=== PATIENT | female | born 1995 | race Caucasian/White ===

== ENCOUNTER 2021-04-22 10:12 | Emergency (ER) | payer OTHER, SELFPAY ==
--- NOTE | ~2021-04-22 | US_ITS ---
EXAMINATION: US VENOUS ULTRASOUND WITH DOPPLER LOWER EXTREMITY, RIGHT CLINICAL INFORMATION: Right lower extremity pain and swelling. COMPARISON: None TECHNIQUE: Ultrasound of the deep veins is performed from the hip to the calf with compression sonography and color and pulse Doppler assessment. Spectral analysis with color-flow imaging is performed. FINDINGS: There is normal venous compression and respiratory variation and augmented flow. The visualized common femoral vein, superficial femoral vein, profunda femoral vein, popliteal vein, and the trifurcation region shows no evidence of deep venous thrombosis. There is no significant popliteal fossa cyst. If the patient's symptoms persist, followup ultrasound in 5 days 7 days might be of value to exclude proximal propagation from a non-visualized calf vein. US/US venous duplex LE RT IMPRESSION: No DVT demonstrated in the right lower extremity.
[2021-04-22 11:06] VITALS: BP 126/87; PULSE 82; RESP 18; TEMP 36.6; O2SAT 100; BMI 40.6
--- NOTE | 2021-04-22 11:06 | ED_ITS ---
HPI - Extremity Injury (Lower) General Chief Complaint: Extremity Injury, Lower Stated Complaint: blood clot in leg ? Time Seen by Provider: 04/22/21 11:06 Source: patient Mode of arrival: ambulatory Limitations: no limitations History of Present Illness HPI Narrative: Patient is 30 weeks and has a prior history of blood clots during . Patient is only on ASA currently. Sent in by her OB for DVT rule out. No chest pain no shortness, no redness, Right let slightly more swollen than the left. Onset (ago): day(s) (3) Exacerbating factors: nothing Associated symptoms: swelling and tingling Related Data Allergies Allergy/AdvReac Type Severity Reaction Status Date / Time aloe [ALOE] Allergy Unknown RASH Unverified 05/23/20 16:16 Aloe Allergy Unknown Uncoded 10/18/19 00:00 DUST Allergy Unknown SNEEZING Uncoded 05/23/20 16:16 Dust Allergy Unknown Uncoded 10/18/19 00:00 Review of Systems Constitutional: Constitutional: Reports no additional constitutional complaints Eyes: Eyes: Reports no additional eye complaints ENT: Denies dizziness Cardiovascular: Cardiovascular: Reports no additional cardiovascular complaints Respiratory: Respiratory: Reports as per HPI Gastrointestinal: Gastrointestinal: Reports no additional gastrointestinal complaints Genitourinary: Genitourinary: Reports no additional female genitourinary complaints Musculoskeletal: Musculoskeletal: Reports no additional musculoskeletal complaints Integumentary/Breasts: Skin/Breast: Denies rash Neurologic: Reports system reviewed and no additional complaints, except as documented, Denies dizziness and Denies Sensory deficit (Neuro) Psychiatric: Psychiatric: Denies anxiety [facility] Past Medical History Medical History DVT (deep vein thrombosis) in Social History Social History Advance Directives: No Advance Directives Information Provided: No Patient : Yes Physical Exam Vital Signs: Vital Signs: Last Vital Signs Temp 98.5 F 04/22/21 11:31 Pulse 79 04/22/21 11:31 Resp 15 04/22/21 11:31 BP 105/60 04/22/21 11:31 Pulse Ox 99 04/22/21 11:31 Body Mass Index 40.6 Const: Other: young female General: healthy appearing Orientati on/consciousness: oriented to person and patient oriented x3 Limitations: no limitations HENMT: Head: Yes normal to inspection Ears: external ears normal General nose exam: Normal external nose present Mouth: Normal oral and palatal mucosa present and oropharynx normal Throat: Yes posterior oropharynx normal Eyes: General: appearance normal, both eyes and all related structures Neck: Other: supple Neck: Yes normal visual inspection Chest: Chest palpation & inspection: normal inspection of the chest Resp: Auscultation: clear to auscultation bilaterally Cardio: Jugular venous distension: no JVD Rate: regular rate Rhythm: regular rhythm Heart sounds: S1 normal heart sound present and S2 normal heart sound present GI: Other: gravid nontender Palpation (GI): Soft to palpation, nontender and No hepatosplenomegaly present Auscultation: normal bowel sounds : General: Yes no CVA tenderness Back/Spine/Pelvis: Back: no CVA tenderness Skin: General skin exam: no rashes or lesions noted Neuro: General: oriented to person and patient oriented x3 Cranial nerves: Yes CN's II-XII intact bilaterally Motor exam (neuro): 5/5 motor strength present throughout Sensory Exam: No Sensory deficit (Neuro) Extrem: Other: calf tenderness to palpation General: Yes normal to inspection Psych: Appearance: grossly normal Course Reevaluation(s) Reevaluation #1: no evidence of dVT will dc home Time: 13:20 MDM - Extremity Injury (Lower) Imaging Data duplex leg: Radiologist's impression: IMPRESSION: No DVT demonstrated in the right lower extremity. Discharge Plan Discharge Clinical Impression: Calf pain Qualifiers: Laterality: right Qualified Code(s): M79.661 - Pain in right lower leg Patient Disposition: Home, Self-Care Additional Instructions: tylenol or motrin for pain Referrals: Joel Sanders MD [Primary Care Provider] - 1 week
[2021-04-22 11:31] VITALS: BP 105/60; PULSE 79; RESP 15; TEMP 36.9; O2SAT 99
== END 2021-04-22 13:49 | disposition home or self-care (01) ==
PROVIDERS: Emergency Provider Emergency Medicine; PCP Internal Medicine
DX: O26.893 Other specified pregnancy related conditions, third trimester (principal); M79.661 Pain in right lower leg; R22.41 Localized swelling, mass and lump, right lower limb; Z3A.30 30 weeks gestation of pregnancy
CPT/HCPCS: 93971; 99283; 99284

== ENCOUNTER → 2022-06-04 13:58 | Outpatient (BNVA) | payer OTHER, SELFPAY | PROVIDERS: PCP Internal Medicine; Visit Provider Physician Assistant | DX: M77.8 Other enthesopathies, not elsewhere classified (principal); S46.912A Strain of unspecified muscle, fascia and tendon at shoulder and upper arm level, left arm, initial encounter; X50.0XXA Overexertion from strenuous movement or load, initial encounter; X50.1XXA Overexertion from prolonged static or awkward postures, initial encounter | CPT/HCPCS: 99203 ==

== ENCOUNTER → 2022-06-18 13:43 | Outpatient (BNVA) | payer OTHER, SELFPAY | PROVIDERS: PCP Internal Medicine; Visit Provider Physician Assistant Medical | DX: M77.8 Other enthesopathies, not elsewhere classified (principal); S46.912D Strain of unspecified muscle, fascia and tendon at shoulder and upper arm level, left arm, subsequent encounter; X50.0XXD Overexertion from strenuous movement or load, subsequent encounter | CPT/HCPCS: 99213 ==

== ENCOUNTER → 2022-07-02 12:56 | Outpatient (BNVA) | payer OTHER, SELFPAY | PROVIDERS: PCP Internal Medicine; Visit Provider Physician Assistant Medical | DX: M77.8 Other enthesopathies, not elsewhere classified (principal); S46.912D Strain of unspecified muscle, fascia and tendon at shoulder and upper arm level, left arm, subsequent encounter; X50.0XXD Overexertion from strenuous movement or load, subsequent encounter | CPT/HCPCS: 99213 ==

== ENCOUNTER 2022-07-09 14:00 | Outpatient (RCR) | payer OTHER, SELFPAY ==
--- NOTE | 2022-06-18 16:21 | MHC.OT.EP ---
[address] [phone] Occupational Therapy Plan of Care Date of Evaluation: 06/18/22 Diagnosis: L shoulder strain L wrist tendonitis Assessment: Pt. is a 27 y/o female referred to OT for left shoulder sprain and left wrist tendonitis s/p work injury on . 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 Pt. has full shoulder ROM, although pain with end range flexion and IR. She reports a warm, burning pain in anterior shoulder with any active range. A 63.1% limitation is reported per the Shoulder pain and disability index assessment and a 54% limitation per the Quick DASH assessment. Pt. is having difficulty lifting and caring for her one and three year old children and remains on light duty at work. There is some midcarpal joint instability of the left wrist and pain with testing. Mold Capper strength on the L is 45# compared to 80# on the R. Darcy would benefit from skilled OT services to address noted barriers and return to PLOF. 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 will demo joint protection techniques for improved safety with work tasks Treatment Plan: Therapeutic Exercise Therapeutic Activity Home Exercise Program Splinting Patient Education Edema Control Ultrasound Iontophoresis Paraffin Fluidotherapy MHP Cold Packs Joint Mobilization Soft Tissue Mobilization Kinesiotaping Electronically Signed By: Ct Baer MS OTR/L Please Sign and return to therapist. Thank you once again for your referral.
== END 2022-07-23 14:41 | disposition home or self-care (01) ==
LOC: HO.OT 14:00
PROVIDERS: Visit Provider Physician Assistant Medical
DX: M65.88 Other synovitis and tenosynovitis, other site (principal)
CPT/HCPCS: 97035; 97110; 97140; 97165

== ENCOUNTER → 2022-07-16 13:18 | Outpatient (BNVA) | payer OTHER, SELFPAY | PROVIDERS: PCP Internal Medicine; Visit Provider Physician Assistant Medical | DX: M77.8 Other enthesopathies, not elsewhere classified (principal); S46.912D Strain of unspecified muscle, fascia and tendon at shoulder and upper arm level, left arm, subsequent encounter; X50.0XXD Overexertion from strenuous movement or load, subsequent encounter | CPT/HCPCS: 99213 ==

== ENCOUNTER 2024-12-21 15:26 | Emergency (ER) | payer OTHER, SELFPAY ==
[2024-12-21] VITALS (8 sets, daily range): BP systolic 98–124; BP diastolic 60–81; PULSE 108–129; RESP 14–20; TEMP 36.9–37.3; O2SAT 98–100; BMI 35.0
--- NOTE | ~2024-12-21 | XR_ITS ---
EXAMINATION: XR CHEST CLINICAL INFORMATION: chest pain COMPARISON: Chest x-ray 07/27/2019 TECHNIQUE: 2 views of the chest were obtained. FINDINGS: No significant abnormality is noted involving the heart, lungs, mediastinum, bony thorax or soft tissues. XR/XR chest 2V IMPRESSION: Unremarkable chest examination. Electronically signed by: Bryan Perkins MD 12/21/2024 04:28 PM EDT RP
--- NOTE | 2024-12-21 15:29 | ECG_ITS ---
Test Reason : chest pain Blood Pressure : */* mmHG Vent. Rate : 134 BPM Atrial Rate : 134 BPM P-R Int : 160 ms QRS Dur : 84 ms QT Int : 276 ms P-R-T Axes : 65 67 17 degrees QTcB Int : 412 ms Sinus tachycardia Nonspecific T wave abnormality Abnormal ECG When compared with ECG of 27-Jul-2019 00:28, Vent. rate has increased by 68 bpm Nonspecific T wave abnormality now evident in Inferior leads Referred By: Lena Richardson Electronically Signed By: ARLEN HAYNES MD
--- NOTE | 2024-12-21 15:48 | ED.GENADULT ---
HPI - General Adult General Chief complaint: Arrhythmia/Palpitations Stated complaint: sob,heart racing,pulse 155 Time Seen by Provider: 12/21/24 17:54 Source: patient Mode of arrival: ambulatory Limitations: no limitations History of Present Illness ED Provider: HPI narrative: Patient has been having watery diarrhea since yesterday had about 6-7 loose bowels diffuse abdominal cramps feel lightheaded with tachycardic dizzy on standing cold and clammy also has some rash in the right arm and left arm for last few days no urinary symptoms no high fever on arrival patient was tachycardic with heart rate of 140s Related Data Previous Rx's ?Medication ?Instructions ?Recorded loperamide 2 mg tablet (Imodium 2 mg PO Q6H PRN loose stool #14 12/21/24 A-D) tabs ondansetron 4 mg disintegrating 4 mg PO Q6-8H PRN nausea and 12/21/24 tablet vomiting #7 tabs Allergies Allergy/AdvReac Type Severity Reaction Status Date / Time aloe [ALOE] Allergy Unknown RASH Verified 12/21/24 15:54 DUST Allergy Unknown SNEEZING Uncoded 12/21/24 15:54 Review of Systems Review of Systems: Yes all other systems are reviewed and are negative [facility] Past Medical History Medical History DVT (deep vein thrombosis) in Social History Social History Alcohol intake: current Alcohol intake frequency: holidays/special occasions only Smoked in Last 30 Days: No Use of substances other than those prescribed or required for medical reasons: No Advance Directives: No Advance Directives Information Provided: No Patient : No Physical Exam ED Vital Signs: Vital Signs - 24 hr 12/21/24 15:48 12/21/24 18:12 Temperature 99.1 F Pulse Rate 129 H 127 H Respiratory Rate 18 17 Blood Pressure 111/76 124/81 Pulse Oximetry 98 100 Oxygen Delivery Method Room Air Room Air BMI result Body Mass Index 35.0 Appearance: Alert. Oriented X3. No acute distress. Eyes: No pallor or icterus ENT: Pharynx normal. Oral Mucosa moist Neck: Normal inspection. Neck supple. CVS: Regular rhythm tachycardic Pulses normal. Respiratory: No respiratory distress. Equal air entry bilateral, no wheezing/rales/rhonchi Abdomen: Soft and nontender. Bowel sounds are present, no mass palpable, no CVA tenderness Skin: Skin warm and dry. Normal skin color. Normal skin turgor. Extremities: No lower extremity edema. No calf tenderness Neuro: Oriented X 3. No motor deficit. No sensory deficit.No cerebellar signs , cranial nerves II-XII intact Course Course Course Narrative: This is a rapid medical exam performed by Stephani Richardson NP: Additional HPI, ROS, PE not included below will be deferred to primary provider. Patient is a 29-year-old female presenting to the ED with complaint of heart palpitations, lightheadedness with standing, feels near syncopal. Tachy to 128 in triage. Reports diarrhea last night, epigastric pain. Currently on 7.5mg of Mounjaro. Dyspnea on exertion. Pain to left shoulder blade. Plan: EKG, labs Medications Administered Discontinued Medications Generic Name Dose Route Start Last Admin Trade Name Freq PRN Reason Stop Dose Admin Sodium Chloride 1,000 mls @ 999 mls/hr 12/21/24 18:20 12/21/24 19:15 Ns IV 12/21/24 19:20 Infused .Q1H1M ONE Infusion Sodium Chloride 1,000 mls @ 999 mls/hr 12/21/24 21:20 12/21/24 23:27 Ns IV 12/21/24 22:20 Infused .Q1H1M ONE Infusion Loperamide HCl 4 mg 12/21/24 21:23 12/21/24 21:40 Loperamide Hcl 2 Mg Capsule PO 12/21/24 21:24 4 mg ONCE ONE Administration Medical Decision Making Medical Decision Making [facility] Narrative: Patient with viral gastroenteritis responded to IV fluids feeling much better no focal tenderness in the abdomen unlikely C diff as no exposure to antibiotics discharge patient home patient is feeling much better during stay in the ER Lab Data [facility] Lab Attestation statement: I reviewed the patient's lab results. 12/21/24 16:16 12/21/24 16:16 Labs: Lab Results 12/21/24 12/21/24 12/21/24 Range/Units 16:16 18:27 20:12 WBC 16.0 H (4.8-10.8) X10*3/uL RBC 4.71 (4.20-5.50) X10*6/uL Hgb 14.0 (12.0-16.0) g/dl Hct 40.9 (37.0-47.0) % MCV 86.8 (80.0-98.0) fL MCH 29.7 (27.0-33.0) pg MCHC 34.2 (31.0-35.0) g/dl RDW 13.0 (11.0-16.0) % Plt Count 303 (160-400) X10*3/uL MPV 10.5 (9.4-12.3) fL Immature Gran % (Auto) 0.5 H (0.0-0.4) % Neut % (Auto) 77.4 H (45-73) % Lymph % (Auto) 16.2 L (20-40) % Sibley % (Auto) 5.1 (2-11) % Eos % (Auto) 0.4 (0-4) % Baso % (Auto) 0.4 (0-2) % Lymph # (Auto) 2.6 (1.2-4.9) X10*3/uL [place]y # (Auto) 0.8 (0.1-1.2) X10*3/uL Eos # (Auto) 0.1 (0.0-0.4) X10*3/uL Baso # (Auto) 0.1 (0.0-0.2) X10*3/uL Abs Immat Gran (auto) 0.08 H (0.00-0.03) X10*3/uL Absolute Neuts (auto) 12.4 H (2.0-8.3) x10*3/uL Absolute Nucleated RBC 0.000 (0.0-0.012) X10*3/uL Nucleated RBC % (auto) 0.0 (0.0-0.2) /100WBC PT 14.6 H (10.9-12.4) SEC INR 1.3 H (0.9-1.1) D-Dimer High Sensitivty < 150 NG/ML Hold Blue Top SEE NOTE Sodium 138 (135-145) mmol/L Potassium 4.2 (3.3-5.1) mmol/L Chloride 110 H (96-108) mmol/L Carbon Dioxide 20 L (22-29) mmol/L Anion Gap 12 (12-20) BUN 22 H (9-16) mg/dL Creatinine 0.89 (0.5-1.4) mg/dL Estim Creat Clear Calc 89.9 Estimated GFR > 60 Random Glucose 153 H (60-115) mg/dL Calcium 9.9 (8.4-10.2) mg/dL Magnesium 1.8 (1.6-2.6) mg/dL Total Bilirubin 0.5 (0.0-1.0) mg/dL AST 25 (5-31) U/L ALT 33 H (0-31) U/L Alkaline Phosphatase 52 (39-117) U/L Troponin I High Sens < 2.7 (<3.5-17.0) ng/L Total Protein 8.3 H (6.5-8.0) g/dL Albumin 4.6 (3.5-5.0) g/dL TSH 1.03 (0.32-4.0) uIU/mL Beta HCG, Quant < 2 mIU/mL Urine Color Yellow Urine Appearance Clear Urine pH 5.5 (5.0-9.0) Ur Specific [place] >= 1.030 H (1.005-1.025) Urine Protein Negative (Neg-Trace) mg/dL Urine Glucose (UA) Negative (Negative) mg/dL Urine Ketones Negative (Negative) mg/dL Urine Blood Trace H (Negative) Urine Nitrite Negative (Negative) Ur Leukocyte Esterase Trace H (Negative) Urine RBC 0-2 (0-2) /HPF Urine WBC 0-5 (0-5) /HPF Ur Squamous Epith Cells 3-5 (0-2) /HPF Urine Bacteria Trace (None Seen) Hyaline Casts 0-2 (0-2) /LPF Influenza Type A (PCR) (Negative) Influenza Type B (PCR) (Negative) RSV RNA Qual (PCR) (Negative) SARS-CoV-2 RNA (RT-PCR) (Negative) 12/21/24 Range/Units 21:27 WBC (4.8-10.8) X10*3/uL RBC (4.20-5.50) X10*6/uL Hgb (12.0-16.0) g/dl Hct (37.0-47.0) % MCV (80.0-98.0) fL MCH (27.0-33.0) pg MCHC (31.0-35.0) g/dl RDW (11.0-16.0) % Plt Count (160-400) X10*3/uL MPV (9.4-12.3) fL Immature Gran % (Auto) (0.0-0.4) % Neut % (Auto) (45-73) % Lymph % (Auto) (20-40) % Sibley % (Auto) (2-11) % Eos % (Auto) (0-4) % Baso % (Auto) (0-2) % Lymph # (Auto) (1.2-4.9) X10*3/uL Sibley # (Auto) (0.1-1.2) X10*3/uL Eos # (Auto) (0.0-0.4) X10*3/uL Baso # (Auto) (0.0-0.2) X10*3/uL Abs Immat Gran (auto) (0.00-0.03) X10*3/uL Absolute Neuts (auto) (2.0-8.3) x10*3/uL Absolute Nucleated RBC (0.0-0.012) X10*3/uL Nucleated RBC % (auto) (0.0-0.2) /100WBC PT (10.9-12.4) SEC INR (0.9-1.1) D-Dimer High Sensitivty NG/ML Hold Blue Top Sodium (135-145) mmol/L Potassium (3.3-5.1) mmol/L Chloride (96-108) mmol/L Carbon Dioxide (22-29) mmol/L Anion Gap (12-20) BUN (9-16) mg/dL Creatinine (0.5-1.4) mg/dL Estim Creat Clear Calc Estimated GFR Random Glucose (60-115) mg/dL Calcium (8.4-10.2) mg/dL Magnesium (1.6-2.6) mg/dL Total Bilirubin (0.0-1.0) mg/dL AST (5-31) U/L ALT (0-31) U/L Alkaline Phosphatase (39-117) U/L Troponin I High Sens (<3.5-17.0) ng/L Total Protein (6.5-8.0) g/dL Albumin (3.5-5.0) g/dL TSH (0.32-4.0) uIU/mL Beta HCG, Quant mIU/mL Urine Color Urine Appearance Urine pH (5.0-9.0) Ur Specific Mes[place] (1.005-1.025) Urine Protein (Neg-Trace) mg/dL Urine Glucose (UA) (Negative) mg/dL Urine Ketones (Negative) mg/dL Urine Blood (Negative) Urine Nitrite (Negative) Ur Leukocyte Esterase (Negative) Urine RBC (0-2) /HPF Urine WBC (0-5) /HPF Ur Squamous Epith Cells (0-2) /HPF Urine Bacteria (None Seen) Hyaline Casts (0-2) /LPF Influenza Type A (PCR) NEGATIVE (Negative) Influenza Type B (PCR) NEGATIVE (Negative) RSV RNA Qual (PCR) NEGATIVE (Negative) SARS-CoV-2 RNA (RT-PCR) NEGATIVE (Negative) Independent Interpretation I performed an independent interpretation of an: Plain X-Ray Interpretation: NAD sinus tachycardic with ventricular rate 134 beats per minute normal interval normal axis no acute STT wave changes no acute ischemia Discharge Plan Discharge Clinical Impression: Gastroenteritis Patient Disposition: Home, Self-Care Instructions: Gastroenteritis (ED) Additional Instructions: Drink plenty of fluids Medicine for nausea and diarrhea as prescribed Report to ER if not better Prescriptions: New loperamide [Imodium A-D] 2 mg tablet 2 mg PO Q6H PRN (Reason: loose stool) Qty: 14 0RF ondansetron 4 mg tablet,disintegrating 4 mg PO Q6-8H PRN (Reason: nausea and vomiting) Qty: 7 0RF Stand Alone Forms: Work/School Release Interventions: ED Discharge Assessment Last Done: 12/22/24 00:06 Discharge Date/Time: 12/22/24 00:07 Print Language: Persian
[2024-12-21 16:28] LABS: MANUAL DIFF FLAG NO
[2024-12-21 16:30] LABS: Basophils Absolute Auto 0.1 X10*3/uL (0.0-0.2); Basophils Percent Auto 0.4 % (0-2); Eosinophils Absolute Auto 0.1 X10*3/uL (0.0-0.4); Eosinophils Percent Auto 0.4 % (0-4); Hematocrit 40.9 % (37.0-47.0); Imm Gran Abs Auto 0.08 X10*3/uL (0.00-0.03); Imm Gran Pct Auto 0.5 % (0.0-0.4); Lymphocytes Absolute Auto 2.6 X10*3/uL (1.2-4.9); Lymphocytes Percent Auto 16.2 % (20-40); Mean Corpuscular HGB Conc 34.2 g/dl (31.0-35.0); Mean Corpuscular Hemoglobin 29.7 pg (27.0-33.0); Mean Corpuscular Volume 86.8 fL (80.0-98.0); Mean Platelet Volume 10.5 fL (9.4-12.3); Monocytes Absolute Auto 0.8 X10*3/uL (0.1-1.2); Monocytes Percent Auto 5.1 % (2-11); Neutrophils Absolute Auto 12.4 x10*3/uL (2.0-8.3); Neutrophils Percent Auto 77.4 % (45-73); Platelet Count 303 X10*3/uL (160-400); Red Blood Count 4.71 X10*6/uL (4.20-5.50)
[2024-12-21 16:39] LABS: INTERNATIONAL NORM RATIO 1.3 (0.9-1.1); Prothrombin Time 14.6 SEC (10.9-12.4)
[2024-12-21 16:51] LABS: Alanine Aminotransferase 33 U/L (0-31); Albumin Level 4.6 g/dL (3.5-5.0); Anion Gap 12 (12-20); Aspartate Amino Transferase 25 U/L (5-31); Bilirubin Total 0.5 mg/dL (0.0-1.0); Blood Urea Nitrogen 22 mg/dL (9-16); Calcium 9.9 mg/dL (8.4-10.2); Carbon Dioxide 20 mmol/L (22-29); Chloride 110 mmol/L (96-108); Creatinine Clr Calc Pharmacy 89.9; Estimated Glomerular Filt Rate > 60; Magnesium 1.8 mg/dL (1.6-2.6); Potassium 4.2 mmol/L (3.3-5.1); Sodium 138 mmol/L (135-145); Total Protein 8.3 g/dL (6.5-8.0)
[2024-12-21 16:55] LABS: Alkaline Phosphatase 52 U/L (39-117); Glucose Random 153 mg/dL (60-115); HCG Quantitative < 2 mIU/mL; Troponin-I High Sensitivity < 2.7 ng/L (<3.5-17.0)
[2024-12-21 17:06] LABS: TSH reflex Free T4 1.03 uIU/mL (0.32-4.0)
[2024-12-21] MEDS: 0.9 % Sodium Chloride 1,000 ML 999 ML IV ×2 (18:25→21:40)
--- OUTSIDE RECORDS SUMMARY | 2024-12-21 18:29 | XMS_ITS | Continuity of Care Document ---
Author Organization [facility] [address] [place] [address] Phone [phone] Care Team Providers Care Web Applications Developer Name Role Phone Joel Sanders M.D. Care Team Information Senior Data Developer [phone] Problems Active Problems Provider Date Type 2 diabetes mellitus Rob Taylor M.D. Onset: 06/05/2022 Anxiety Rob Taylor M.D. Onset: 0 06/05/2022 H/O: depression Rob Taylor M.D. Onset: 0 06/05/2022 Social History Type Date Description Comments Sex Unknown Tobacco Use Start: Unknown End: Unknown Quit 2016 ETOH Use Rarely consumes alcohol Allergies and adverse reactions Description No Known Drug Allergies Medications Active Medications SIG Qnty Indications Order ing Provider Date Mounjaro7.5mg/0.5ML Solution Auto-Inject 1 injection every week as directed 6ml Rob Taylor M.D. 09/14/2024 Freestyle TestStrips Use 1 new test strip 2 to 3 times daily for testing blood sugars 300units E11.9 Rob Taylor M.D. History Medications Uqovyuwl5gd/0.5ML Solution Pen-Inject 1 injection every week as directed 2ml Rob Taylor M.D. 02/11/2024 - 09/14/2024 Vital Signs Date Vital Result Comment 09/14/2024 10:42am BP Systolic 122 mmHg BP Diastolic 80 mmHg Heart Rate 72 /min Height 61.5 inches 5'1.50 Weight 181.00 lb BMI (Body Mass Index) 33.6 kg/m2 Results Test Acquired Date Facility Test Result H/L Range Note Hemoglobin A1c 09/14/2024 Inhouse Hemoglobin A1c 6.4% Glucose Fingerstick 09/14/2024 Inhouse Glucose Fingerstick 135 Glucose Fingerstick 05/29/2024 Inhouse Glucose Fingerstick 98 Testosterone, Women/Child 05/29/2024 [facility] Testosterone, Women/Child 19 ng/dL 1 Dhea-Sulfate 05/29/2024 [facility] Dhea-Sulfate 78.9 g /dL Low 84.8-378 .0 Comp. Metabolic Panel (14) 02/17/2024 [facility] Glucose 217 mg/dL High 70-99 BUN 13 mg/dL 6-20 Creatinine 0.69 mg/dL 0.57-1.0 0 eGFR 120 mL/min/1. 73 >59 BUN/Creatinine Ratio 19 9-23 Sodium 140 mmol/L 134-144 Potassium 4.4 mmol/L 3.5-5.2 Chloride 104 mmol/L 96-106 Carbon Dioxide, Total 21 mmol/L 20-29 Calcium 9.7 mg/dL 8.7-10.2 Protein, Total 6.6 g/dL 6.0-8.5 Albumin 4.0 g/dL 4.0-5.0 Globulin, Total 2.6 g/dL 1.5-4.5 A/G Ratio 1.5 Bilirubin, Total 0.3 mg/dL 0.0-1 .2 Alkaline Phosphatase 46 IU/L 44-121 Ast (Sgot) 19 IU/L 0-40 Alt (SGPT) 34 IU/L High 0-32 Hemoglobin A1c 02/17/2024 Inhouse Hemoglobin A1c 8.4% Glucose Fingerstick 02/17/2024 Inhouse Glucose Fingerstick 241 Ferritin 02/17/2024 [facility] Ferritin 55 ng/mL 15-150 Iron And Tibc 02/17/2024 [facility] Iron Bind.Cap.(Tibc) 372 g /dL 250-450 Uibc 289 g /dL 131-425 Iron 83 g /dL 27-159 Iron Saturation 22 % 15-55 CBC With Differential/Plat elet 02/17/2024 [facility] WBC 7.1 x10E3/uL 3.4-10.8 RBC 4.08 x10E6/uL 3.77-5.2 8 Hemoglobin 12.6 g/dL 11.1-15. 9 Hematocrit 38.1 % 34.0-46. 6 MCV 93 fL 79-97 MCH 30.9 pg 26.6-33. 0 MCHC 33.1 g/dL 31.5-35. 7 RDW 12.3 % 11.7-15. 4 Platelets 244 x10E3/uL 150-450 Neutrophils 49 % Not Estab. Lymphs 44 % Not Estab. Monocytes 6 % Not Estab. Eos 1 % Not Estab. Basos 0 % Not Estab. Immature Cells TNP Neutrophils (Absolute) 3.5 x10E3/uL 1.4-7.0 Lymphs (Absolute) 3.1 x10E3/uL 0.7-3.1 Monocytes(Absol u te) 0.4 x10E3/uL 0.1-0.9 Eos (Absolute) 0.1 x10E3/uL 0.0-0.4 Baso (Absolute) 0.0 x10E3/uL 0.0-0.2 Immature Granulocytes 0 % Not Estab. Immature Grans (Abs) 0.0 x10E3/uL 0.0-0.1 NRBC TNP Hematology Comments: TNP TSH+Free T4 02/17/2024 [facility] TSH 1.360 uIU/mL 0.450-4. 500 T4,Free(Direct) 1.07 ng/dL 0.82-1.7 7 Written Authorization 02/17/2024 [facility] Written Authorization See Comment: 2 Glucose Fingerstick 09/17/2023 Inhouse Glucose Fingerstick 354 Hemoglobin A1c 09/17/2023 Inhouse Hemoglobin A1c 10.9% Glucose Fingerstick 04/26/2023 Inhouse Glucose Fingerstick 178 Hemoglobin A1c 04/26/2023 Inhouse Hemoglobin A1c 7.1% Glucose Fingerstick 12/08/2022 Inhouse Glucose Fingerstick 118 Hemoglobin A1c 12/08/2022 Inhouse Hemoglobin A1c 5.6% Glucose Fingerstick 09/08/2022 Inhouse Glucose Fingerstick 126 Hemoglobin A1c 09/08/2022 Inhouse Hemoglobin A1c 6.0% TSH With Reflex To FT4 06/05/2022 [facility] TSH With Reflex To FT4 <pending> Hemoglobin A1c 06/05/2022 Inhouse Hemoglobin A1c 8.0% Glucose Fingerstick 06/05/2022 Inhouse Glucose Fingerstick 133 1 This test was develo ped and its performance characteristics determined by [facility]. It has not been cleared or approved by the Food and Drug Administration. Reference Range: Adult Females Premenopausal 10 - 55 Postmenopausal 7 - 40 2 Written Authorizatio n Received. Authorization received from Chelsie Sanders for Link Request on 02-23-2024 Logged by Fanny Pacheco Procedures Date Code Description Status 08/02/2023 NSHOWOFF No Show Office Visit Complet ed 04/09/2023 NSHOWOFF No Show Office Visit Complet ed Medical Devices Description No Information Available Encounters Type Date Location Provider Dx Diagnosis Office Visit 09/14/2024 10:30a Main Office Rob Taylor M.D. E11.9 Type 2 diabetes mellitus without complications Assessments Date Code Description Provider 09/14/2024 E11.9 Type 2 diabetes mellitus without complications Rob Taylor M.D. Plan of Treatment Future Appointment(s):* 01/18/2025 9:15 am - Rob Taylor M.D. at Main Office 09/14/2024 - Rob Taylor M.D.* E11.9 Type 2 diabetes mellitus without complications * Functional Status Description No Information Available Mental Status Description No Information Available Referrals Description No Information Available
--- NOTE | 2024-12-21 19:15 | PC.NURSE ---
this rn assumed care of pt, pt resting in stretcher, no acute distress noted, fluids completed at this time, urine cup left at bedside, instructed pt to use.
[2024-12-21 19:21] LABS: D Dimer High Sensitivity < 150 NG/ML
[2024-12-21 20:22] LABS: Appearance Urine Clear; Color Urine Yellow; Glucose Urine UA Negative (Negative); Leukocyte Esterase Urine Trace (Negative); Nitrite Urine Negative (Negative); PH 5.5 (5.0-9.0); Specific Gravity - Urine >= 1.030 (1.005-1.025); UMIC TRIGGER UACC YES; Urine Blood Trace (Negative); Urine Ketones Negative (Negative); Urine Protein Negative (Neg-Trace)
[2024-12-21 20:26] LABS: Bacteria Urine Trace (None Seen); Hyaline Casts Urine 0-2 /LPF (0-2); RBC Urine 0-2 /HPF (0-2); WBC Urine 0-5 /HPF (0-5)
[2024-12-21] MEDS: Loperamide HCl 2 MG CAPSULE 4 MG PO (21:40)
--- NOTE | 2024-12-21 21:42 | PC.NURSE ---
pt medicated per mar, tolerated whole well with water. iv fluid bolus administered at this time.
[2024-12-21 22:10] LABS: Influenza A PCR NEGATIVE (Negative); Influenza B PCR NEGATIVE (Negative); Resp Syncy Virus RNA Qual PCR NEGATIVE (Negative); SARS COV2 PCR INHOUSE NEGATIVE (Negative)
[2024-12-22 00:06] VITALS: BP 122/78; PULSE 96; RESP 18; TEMP 36.8; O2SAT 99
== END 2024-12-22 00:07 | disposition home or self-care (01) ==
PROVIDERS: Registered Nurse Emergency; Emergency Provider Internal Medicine; PCP Internal Medicine
DX: K52.9 Noninfective gastroenteritis and colitis, unspecified (principal); Z03.818 Encounter for observation for suspected exposure to other biological agents ruled out; R00.0 Tachycardia, unspecified; R79.1 Abnormal coagulation profile
CPT/HCPCS: 0241U; 36415; 71046; 80053; 81001; 83735; 84443; 84484; 84702; 85025; 85379; 85610; 93005; 96360; 96361; 99284; 99285

== ENCOUNTER → 2024-12-21 15:29 | Outpatient (BNV) | payer OTHER, SELFPAY | PROVIDERS: Emergency Provider Internal Medicine; PCP Internal Medicine; Visit Provider Internal Medicine Cardiovascular Disease | DX: R00.0 Tachycardia, unspecified (principal) | CPT/HCPCS: 93010 ==

== ENCOUNTER → 2024-12-21 15:51 | Outpatient (BNV) | payer OTHER, SELFPAY | PROVIDERS: Visit Provider Radiology Diagnostic Radiology | DX: R07.9 Chest pain, unspecified (principal) | CPT/HCPCS: 71046 ==